=== PATIENT | female | born 2000 | race Two or more races ===

== ENCOUNTER 2022-07-19 14:26 | Emergency (ER) | payer SELFPAY ==
[~2022-07-19] VITALS: Ht 170.2 cm; Wt 125.0 kg
[2022-07-19 14:33] VITALS: BP 137/91
== END 2022-07-19 16:17 | disposition left against medical advice (07) ==
LOC: M ED 14:26
DX: Z53.21 Procedure and treatment not carried out due to patient leaving prior to being seen by health care provider (principal)